=== PATIENT | male | born 1970 | race Caucasian/White ===

== ENCOUNTER 2016-08-14 07:47 | Emergency (ER) | payer OTHER ==
[2016-08-14 08:30] VITALS: BP 124/83
--- NOTE | 2016-08-14 09:50 | UC ---
Shoulder Pain HPI - HPI Summary HPI Summary: ONSET OF LEFT SHOULDER PAIN/ACHE YESTERDAY. HAS SOME NUMBNESS/TINGLING IN FOREARM AND HAND. NO INJURY OR TRAUMA. DENIES CHEST PAIN, SOB, NAUSEA, SWEATS. PAIN IS WORSE WHEN HE IS SITTING/STANDING AND FEELS BETTER WHEN ARM IS ELEVATED OR WHEN HE IS LAYING SUPINE. - History of Current Complaint Chief Complaint: UCUpperExtremity Stated Complaint: SHOULDER PAIN DOWN ARM Time Seen by Provider: 08/14/16 09:40 Hx Obtained From: Patient Onset/Duration: Gradual Onset, Lasting Days, Still Present Timing: Constant Severity Initially: Moderate Severity Currently: Moderate Pain Intensity: 4 Pain Scale Used: 0-10 Numeric Character: Aching Aggravating Factor(s): Movement Alleviating Factor(s): Rest, Elevation Associated Signs And Symptoms: Positive: Numbness/Tingling Related History: Dominant Hand Right - Allergies/Home Medications Allergies/Adverse Reactions: Allergies Allergy/AdvReac Type Severity Reaction Status Date / Time No Known Allergies Allergy Verified 01/14/16 08:50 Home Medications: Home Medications Robax 1 tab PO 08/14/16 [History] PMH/Surg Hx/FS Hx/Imm Hx Previously Healthy: Yes - Surgical History Surgical History: Yes Surgery Procedure, Year, and Place: wisdom tooth extraction - Family History Known Family History: Positive: Hypertension - Social History Alcohol Use: 1-2 glasses 3 times a week Substance Use Type: None Smoking Status (MU): Never Smoked Tobacco - Immunization History Most Recent Influenza Vaccination: unk Most Recent Tetanus Shot: up to date Most Recent Pneumonia Vaccination: never Review of Systems Constitutional: Negative Skin: Negative Respiratory: Negative Cardiovascular: Negative Gastrointestinal: Negative Musculoskeletal: Arthralgia Neurological: Paresthesia All Other Systems Reviewed And Are Negative: Yes Physical Exam Triage Information Reviewed: Yes Appearance: Well-Appearing, No Pain Distress, Well-Nourished Vital Signs: Initial Vital Signs Temp 98.2 F 08/14/16 08:05 Pulse 78 08/14/16 08:05 Resp 16 08/14/16 08:05 BP 124/83 08/14/16 08:05 Pulse Ox 98 08/14/16 08:05 Vital Signs Reviewed: Yes Eyes: Positive: Conjunctiva Clear ENT: Positive: Hearing grossly normal Neck: Positive: Supple Respiratory: Positive: No respiratory distress Cardiovascular: Positive: Pulses Normal Abdomen Description: Positive: Soft Musculoskeletal: Positive: ROM Intact, No Edema, Other: - TTP OVER TRAPEZIOUS MUSCLE. NEG SPURLINGS. Neurological: Positive: Alert Psychological: Positive: Age Appropriate Behavior Skin: Negative: rashes Diagnostics - EKG Cardiac Rate: NL - 64 BPM Cardiac Rhythm: Sinus: Normal Ectopy: None ST Segment: Non-Specific - III, AVF, AVR, V1 Shoulder Course/Dx - Differential Dx/Diagnosis Differential Diagnosis/HQI/PQRI: Arthritis, Bursitis, Rotator Cuff Injury, Sprain, Thoracic Outlet Syndrome Provider Diagnoses: CERVICAL RADICULOPATHY Discharge - Discharge Plan Condition: Stable Disposition: HOME Prescriptions: Naproxen [Naproxen EC] 500 mg PO BID PRN #30 tab PRN Reason: Pain predniSONE TAB* [Deltasone TAB*] 50 mg PO DAILY #5 tab Patient Education Materials: Cervical Radiculopathy (ED) Referrals: Soren Jama MD [Medical Doctor] - If Needed Wenceslao Robles MD [Medical Doctor] - 3 Days Additional Instructions: IF YOUR SYMPTOMS DO NOT IMPROVE WITH REST AND RX MEDS, CONSIDER PHYSICAL THERAPY (REFERRAL PROVIDED) AND FOLLOW-UP WITH PCP OR ORTHO.
== END 2016-08-14 10:06 | disposition home or self-care (01) ==
LOC: UCEAST 07:47
DX: M54.12 Radiculopathy, cervical region (principal)
CPT/HCPCS: 93005; 99213; G0463